=== PATIENT | male | born 1965 | race Caucasian/White ===

== ENCOUNTER 2022-12-01 09:22 | Emergency (ER) | payer OTHER, MEDICAID ==
[~2022-12-01] VITALS: Ht 172.7 cm; Wt 129.3 kg
[2022-12-01 09:30] VITALS: BP_SYST 195
--- NOTE | 2022-12-01 09:50 | NUR ---
Placed in room 06 . Placed on cardiac cath technician, blood pressure machine and pulse oximeter. To gown for exam. Side rails up. Report given to ROSE AUSTIN.
--- NOTE | 2022-12-01 09:53 | NUR ---
assumed patient care pt aox4 c/o left lower back pain that radiates to left lower quad. pt states pain started 2 days ago and since gotten worst. patient also states he has had nausea with no v/d. denies fever chills. pt roomed in 6 noted to be moaning and agitated with 10/10 pain. family at bedside.
[2022-12-01] MEDS ORDERED: NACL 0.9% 1,000 ML IV ONE (10:30)
[2022-12-01] MEDS ORDERED: MORPHINE 4 MG INJ. 4 MG/ML VIAL IVP ONE ×2 (10:30→12:00)
[2022-12-01] MEDS ORDERED: ONDANSETRON HCL 4 MG/2 ML VIAL IVP ONE (10:30)
[2022-12-01] MEDS ORDERED: KETOROLAC TROMETHAMINE 15 MG VIAL IVP ONE (10:30)
[2022-12-01 10:44] LABS: BASOPHILS # (AUTO) 0.1 K/uL (0.0-0.2); BASOPHILS % (AUTO) 1.1 % (0.0-2.0); EOSINOPHILS # (AUTO) 0.2 K/uL (0.0-0.4); EOSINOPHILS % (AUTO) 2.5 % (0.0-4.0); HEMATOCRIT 31.8 % (36-54); LYMPHOCYTES # (AUTO) 1.1 K/uL (1.0-5.5); LYMPHOCYTES % (AUTO) 11.7 % (20.5-51.5); MEAN CORPUSCULAR HEMOGLOBIN 25 pg (27-31); MEAN CORPUSCULAR HGB CONC 31 % (32-36); MEAN CORPUSCULAR VOLUME 80 fL (79.0-98.0); MONOCYTES # (AUTO) 0.8 K/uL (0.0-1.0); MONOCYTES % (AUTO) 8.8 % (1.7-9.3); NEUTROPHILS # (AUTO) 7.2 K/uL (1.8-7.7); NEUTROPHILS % (AUTO) 75.9 % (40.0-70.0); PLATELET COUNT (AUTO) 274 K/uL (130-430); RED BLOOD CELL COUNT(AUTO) 3.97 MIL/uL (4.2-6.2); RED CELL DISTRIBUTION WIDTH 17.1 % (9.0-15.0); WHITE BLOOD COUNT (AUTO) 9.5 K/uL (4.8-10.8)
[2022-12-01 10:57] LABS: CALCIUM 9.4 mg/dL (8.4-11.0); CREATININE 0.96 mg/dL (0.55-1.30)
[2022-12-01 11:03] LABS: ALBUMIN 3.2 g/dL (3.4-4.8); TOTAL BILIRUBIN 0.4 mg/dL (0.0-1.0)
[2022-12-01 11:34] LABS: BILIRUBIN,URINE NEGATIVE (NEGATIVE); CLARITY/URINE CLEAR (CLEAR); COLOR,URINE YELLOW (YELLOW); GLUCOSE,URINE 3+ (NEGATIVE); KETONES,URINE TRACE (NEGATIVE); LEUKOCYTE ESTERASE ,URINE NEGATIVE (NEGATIVE); NITRITE, URINE NEGATIVE (NEGATIVE); PROTEIN URINE 2+ (NEGATIVE); UROBILINOGEN,URINE 0.2 (0.2-1.0)
[2022-12-01 11:36] LABS: BLOOD, URINE TRACE (NEGATIVE)
--- NOTE | 2022-12-01 11:36 | NUR ---
patient resting in bed family at bedside. noted to be mayaan 06/15 pain pt states pain is improving slowing
[2022-12-01 12:06] LABS: BACTERIA,URINE FEW /HPF (None Seen); WBC,URINE 0-3 /HPF (0-3)
[2022-12-01] MEDS ORDERED: cefTRIAXone 1 GM in D5W 50 ML IV ONE (12:45)
[2022-12-01] MEDS ORDERED: cefTRIAXone 1 GM VIAL ONE (13:07)
--- NOTE | 2022-12-01 13:45 | NUR ---
iv removed from right AC
[2022-12-01] MEDS ORDERED: CEPH-548 PO (13:50)
--- NOTE | 2022-12-01 14:19 | NUR ---
Patient given written and verbal discharge instructions and verbalizes understanding. ER MD discussed with patient the results and treatment provided. Patient in stable condition. ID arm band removed. IV catheter removed intact and dressing applied, no active bleeding. Rx of Cephalexin given. Patient educated on pain management and to follow up with PMD. Pain Scale . Opportunity for questions provided and answered. Medication side effect fact sheet provided.
[2022-12-01 14:20] VITALS: BP_SYST 128
[2022-12-02] MEDS ORDERED: METO-290 PO (09:18)
[2022-12-02] MEDS ORDERED: HYDR-3917 PO (09:18)
== END 2022-12-01 14:19 | disposition home or self-care (01) ==
LOC: SED 09:22
DX: N12 Tubulo-interstitial nephritis, not specified as acute or chronic (principal); R11.0 Nausea; R10.32 Left lower quadrant pain; E11.9 Type 2 diabetes mellitus without complications; I10 Essential (primary) hypertension; Z91.013 Allergy to seafood; Z79.899 Other long term (current) drug therapy
CPT/HCPCS: 99285; 74176; 96365; 96375; 96361; 80053; 81000; 83690; 85025; 36415; 76376; 96376; J0696; J1885; J2405; J2270; J7030

== ENCOUNTER 2022-12-02 08:21 | Emergency (ER) | payer OTHER, MEDICAID ==
[~2022-12-02] VITALS: Ht 172.7 cm; Wt 129.3 kg
[~2022-12-02 08:21] MED LIST: CEPH-548 PO
--- NOTE | 2022-12-02 08:26 | NUR ---
patient brought into ED at this time by father with c/o left flank pain and nausea and vomiting. Patient states he was in the ED yesterday for same signs and symptoms but they have worsened today
[2022-12-02 08:27] VITALS: BP_SYST 179
--- NOTE | 2022-12-02 08:30 | NUR ---
PT BIB FATHER FROM HOME WITH C/O LEFT FLANK PAIN, N/V FOR TWO DAYS. PT STATES HE WAS HERE AT THIS ED FOR THE SAME S/S AND HIS SYMPTOMS HAVE BECOME WORSE TODAY. HX: DM, CHF, ULCERS. PT IS AAX04, VSS, NAD, BREATHING IS EVEN AND UNLABORED, SKIN INTACT. PT IS AMBULATORY WITH STEADY GAIT, PT IN GOWN. PT PLACED ON DRAPERY HEAD FORMER SHOWING NSR, SAFETY PRECAUTIONS AND COMFORT MEASURES IN PLACE. HOB ELEVADED, SIDE RAILS UP, BED IN LOWEST POSITION, CALL LIGHT WITHIN REACH. PENDING MD RAY AND ORDERS
[2022-12-02] MEDS ORDERED: MORPHINE 4 MG INJ. 4 MG/ML VIAL IM ONE (08:45)
[2022-12-02] MEDS ORDERED: HYDR-3917 PO (09:18)
[2022-12-02] MEDS ORDERED: METO-290 PO (09:18)
--- NOTE | 2022-12-02 09:20 | NUR ---
Patient escorted to room 5 with father. Patient with left flank pain; states that pain reoccurred after leaving ED yesterday. Patient seen by MD and morphine IM given. Currently awaiting re evaluation by MD to check on effectiveness of pain medication.
[2022-12-02] MEDS ORDERED: METOCLOPRAMIDE HCL 10 MG/2 ML VIAL IM ONE (09:30)
--- NOTE | 2022-12-02 10:22 | NUR ---
Patient given written and verbal discharge instructions and verbalizes understanding. ER MD discussed with patient the results and treatment provided. Patient in stable condition. ID arm band removed. Rx of nausea meds given. Patient educated on pain management and to follow up with PMD. Pain Scale 7/10 at this time. Opportunity for questions provided and answered. Medication side effect fact sheet provided.
[2022-12-02 10:25] VITALS: BP_SYST 155
== END 2022-12-02 10:22 | disposition home or self-care (01) ==
LOC: SED 08:21
DX: M54.50 Low back pain, unspecified (principal); R11.0 Nausea; E11.9 Type 2 diabetes mellitus without complications; I10 Essential (primary) hypertension; Z91.013 Allergy to seafood; Z79.899 Other long term (current) drug therapy
CPT/HCPCS: 99284; 96372; J2765; J2270

== ENCOUNTER 2023-01-24 23:44 | Inpatient (IN) | payer OTHER, MEDICAID ==
[~2023-01-24] VITALS: Ht 172.7 cm; Wt 124.7 kg
[~2023-01-24 23:44] MED LIST changes: +HYDR-3917 PO; +METO-290 PO
[2023-01-24 23:52] VITALS: BP_SYST 162
[2023-01-25] MEDS ORDERED: NITROGLYCERIN 1 INCH (GM) OINT. TP ONE
[2023-01-25] MEDS ORDERED: FUROSEMIDE 100 MG/10 ML VIAL IVP ONE
[2023-01-25 00:37] LABS: BASOPHILS # (AUTO) 0.1 K/uL (0.0-0.2); BASOPHILS % (AUTO) 1.1 % (0.0-2.0); EOSINOPHILS # (AUTO) 0.2 K/uL (0.0-0.4); EOSINOPHILS % (AUTO) 3.2 % (0.0-4.0); HEMOGLOBIN 11.3 g/dL (14.0-18.0); LYMPHOCYTES # (AUTO) 1.2 K/uL (1.0-5.5); LYMPHOCYTES % (AUTO) 15.5 % (20.5-51.5); MEAN CORPUSCULAR HEMOGLOBIN 25 pg (27-31); MEAN CORPUSCULAR HGB CONC 32 % (32-36); MEAN CORPUSCULAR VOLUME 81 fL (79.0-98.0); MONOCYTES # (AUTO) 0.7 K/uL (0.0-1.0); MONOCYTES % (AUTO) 9.2 % (1.7-9.3); NEUTROPHILS # (AUTO) 5.4 K/uL (1.8-7.7); PLATELET COUNT (AUTO) 148 K/uL (130-430); RED BLOOD CELL COUNT(AUTO) 4.46 MIL/uL (4.2-6.2); RED CELL DISTRIBUTION WIDTH 19.2 % (9.0-15.0); WHITE BLOOD COUNT (AUTO) 7.6 K/uL (4.8-10.8)
[2023-01-25 00:59] LABS: ALANINE AMINOTRANSFERASE 17 U/L (12-78); ALBUMIN 2.3 g/dL (3.4-4.8); ANION GAP 3 (5-15); ASPARTATE AMINOTRANSFERASE 11 U/L (10-37); CALCIUM 8.6 mg/dL (8.4-11.0); CHLORIDE 102 mmol/L (98-107); GFR AFRICAN AMERICAN 80 mL/min (>90); GLUCOSE 381 mg/dL (70-99); TOTAL BILIRUBIN 0.3 mg/dL (0.0-1.0); UREA NITROGEN, BLOOD 11 mg/dL (8-21)
[2023-01-25] MEDS ORDERED: MORPHINE 4 MG INJ. 4 MG/ML VIAL IVP ONE ×2 (01:45)
[2023-01-25] MEDS ORDERED: INSULIN REGULAR, HUMAN 10 UNITS/0.1 ML, 3 ML VIAL IVP ONE (04:00)
[2023-01-25] MEDS ORDERED: SEMA0.25 SQ (04:42)
[2023-01-25] MEDS ORDERED: PIOG30TA70 PO (04:42)
[2023-01-25] MEDS ORDERED: VITD2000 PO (04:42)
[2023-01-25] MEDS ORDERED: IBUP-1970 PO (04:42)
[2023-01-25] MEDS ORDERED: TRAM50TA2 PO (04:42)
[2023-01-25] MEDS ORDERED: FURO80TA86 PO (04:42)
[2023-01-25] MEDS ORDERED: LOP600 PO (04:42)
[2023-01-25] MEDS ORDERED: INSU100V SUBCUT (04:42)
[2023-01-25] MEDS ORDERED: ASPI-1155 PO (04:42)
[2023-01-25] MEDS ORDERED: SPIR25TA6 PO (04:42)
[2023-01-25] MEDS ORDERED: CARV25TA55 PO (04:42)
[2023-01-25] MEDS ORDERED: TRAZ-250 PO (04:42)
[2023-01-25] MEDS ORDERED: DIF100 PO (04:42)
[2023-01-25] MEDS ORDERED: LIP80 PO (04:42)
[2023-01-25] MEDS ORDERED: CLOP75TA32 PO (04:42)
[2023-01-25] MEDS ORDERED: PRO40 PO (04:42)
[2023-01-25] MEDS ORDERED: ALLO100T PO (04:42)
[2023-01-25] MEDS ORDERED: PREG75CA PO (04:42)
[2023-01-25] MEDS ORDERED: GLIP10TA11 PO (04:42)
[2023-01-25] MEDS ORDERED: EMPA25TA PO (04:42)
[2023-01-25] MEDS ORDERED: METO-290 PO (04:42)
[2023-01-25] MEDS ORDERED: NITSL SL (04:42)
[2023-01-25] MEDS ORDERED: AMIT25TA9 PO (04:42)
[2023-01-25] MEDS ORDERED: POTA-197 PO (04:42)
[2023-01-25] MEDS ORDERED: LOSA25TA3 PO (04:42)
[2023-01-25 05:44] VITALS: BP_SYST 149
[2023-01-25 08:54] VITALS: BP_SYST 154
[2023-01-25] MEDS ORDERED: NON-FORMULARY MEDICATION (Semaglutide (Ozempic) 0.5 MG) SQ SCH (10:15)
[2023-01-25] MEDS ORDERED: NON-FORMULARY MEDICATION (Empagliflozin (Jardiance) 25 MG) PO SCH (10:15)
[2023-01-25] MEDS ORDERED: IBUPROFEN 800 MG TABLET PO PRN (10:15)
[2023-01-25] MEDS ORDERED: METOCLOPRAMIDE HCL 10 MG TABLET PO PRN (10:15)
[2023-01-25] MEDS ORDERED: LORazepam 2 MG/ML VIAL IVP PRN (10:15)
[2023-01-25] MEDS ORDERED: PIOGLITAZONE HCL 45 MG PO SCH (10:15)
[2023-01-25] MEDS ORDERED: NITROGLYCERIN 0.4 MG TAB.SUBL SL PRN (10:15)
[2023-01-25] MEDS ORDERED: traMADol HCL HCL 50 MG TABLET (ULTRAM) PO PRN (10:15)
[2023-01-25] MEDS ORDERED: ONDANSETRON HCL 4 MG/2 ML VIAL IVP PRN (10:15)
[2023-01-25] MEDS ORDERED: HYDROcodone/ACETAMIN 5-325 MG TAB (NORCO/ VICODIN) PO PRN (10:15)
[2023-01-25] MEDS ORDERED: NALOXONE HCL 0.4 MG/ML AMP (NARCAN) IVP PRN (10:15)
[2023-01-25] MEDS ORDERED: ASPIRIN 81 MG TAB.CHEW PO ONE (10:45)
[2023-01-25] MEDS ORDERED: LOSARTAN POTASSIUM 25 MG TABLET PO ONE (11:15)
[2023-01-25] MEDS ORDERED: CHOLECALCIFEROL (VITAMIN D3) 2,000 UNIT TABLET PO ONE (11:15)
[2023-01-25] MEDS ORDERED: CLOPIDOGREL BISULFATE 75 MG TABLET PO ONE (11:15)
[2023-01-25] MEDS ORDERED: SPIRONOLACTONE 25 MG TABLET (ALDACTONE) PO ONE (11:15)
[2023-01-25] MEDS ORDERED: ALLOPURINOL 100 MG TABLET (ZYLOPRIM) PO ONE (11:15)
[2023-01-25 11:50] VITALS: BP_SYST 145
[2023-01-25] MEDS: INSULIN Lispro 100 UNITS/ML, 3 ML VIAL (humaLOG) SUBCUT SCH ×2 (12:04→17:24)
[2023-01-25 12:33] LABS: THYROID STIMULATING HORMONE 2.74 uIu/mL (0.34-4.82)
[2023-01-25] MEDS: METOCLOPRAMIDE HCL 10 MG TABLET PO SCH ×3 (13:00→21:31)
[2023-01-25] MEDS ORDERED: LIDOCAINE TOPICAL OINT 5%, 35 GM TP PRN (15:30)
[2023-01-25] MEDS: NORMAL SALINE 5 ML DISP.SYRIN IVF SCH ×2 (15:30→21:34)
[2023-01-25] MEDS: FUROSEMIDE 80 MG TABLET PO SCH (17:22)
[2023-01-25 18:32] VITALS: BP_SYST 145
[2023-01-25] MEDS ORDERED: traZODone HCL 50 MG TABLET (DESYREL) PO SCH (21:00)
[2023-01-25] MEDS ORDERED: cephALEXin 500 MG CAPSULE PO SCH (21:00)
[2023-01-25] MEDS ORDERED: ATORVASTATIN 20 MG TABLET PO SCH (21:00)
[2023-01-25] MEDS: PREGABALIN 75 MG CAPSULE (LYRICA) PO SCH (21:31)
[2023-01-25] MEDS: PANTOPRAZOLE SODIUM 40 MG TAB PO SCH (21:31)
[2023-01-25] MEDS: AMITRIPTYLINE HCL 25 MG TABLET (ELAVIL) PO SCH (21:33)
[2023-01-25] MEDS: GEMFIBROZIL 600 MG TABLET (LOPID) PO SCH (21:33)
[2023-01-25] MEDS: CARVEDILOL 25 MG TABLET (COREG) PO SCH (21:34)
[2023-01-25] MEDS: INSULIN REGULAR, HUMAN 100 UNITS/ML, 3 ML VIAL (humuLIN R) SUBCUT PRN (22:23)
[2023-01-26 01:39] VITALS: BP_SYST 140
[2023-01-26 04:09] VITALS: BP_SYST 140
[2023-01-26 05:45] LABS: BASOPHILS # (AUTO) 0.1 K/uL (0.0-0.2); BASOPHILS % (AUTO) 0.9 % (0.0-2.0); EOSINOPHILS # (AUTO) 0.4 K/uL (0.0-0.4); EOSINOPHILS % (AUTO) 4.9 % (0.0-4.0); HEMATOCRIT 35.5 % (36-54); HEMOGLOBIN 11.3 g/dL (14.0-18.0); LYMPHOCYTES # (AUTO) 1.7 K/uL (1.0-5.5); LYMPHOCYTES % (AUTO) 21.4 % (20.5-51.5); MEAN CORPUSCULAR HEMOGLOBIN 26 pg (27-31); MEAN CORPUSCULAR HGB CONC 32 % (32-36); MEAN CORPUSCULAR VOLUME 80 fL (79.0-98.0); MONOCYTES # (AUTO) 0.7 K/uL (0.0-1.0); MONOCYTES % (AUTO) 8.5 % (1.7-9.3); NEUTROPHILS # (AUTO) 5.2 K/uL (1.8-7.7); NEUTROPHILS % (AUTO) 64.3 % (40.0-70.0); PLATELET COUNT (AUTO) 144 K/uL (130-430); RED BLOOD CELL COUNT(AUTO) 4.42 MIL/uL (4.2-6.2); RED CELL DISTRIBUTION WIDTH 18.6 % (9.0-15.0); WHITE BLOOD COUNT (AUTO) 8.1 K/uL (4.8-10.8)
[2023-01-26 06:15] LABS: CALCIUM 8.5 mg/dL (8.4-11.0); CREATININE 0.97 mg/dL (0.55-1.30)
[2023-01-26] MEDS: INSULIN REGULAR, HUMAN 100 UNITS/ML, 3 ML VIAL (humuLIN R) SUBCUT PRN (06:16)
[2023-01-26] MEDS: NORMAL SALINE 5 ML DISP.SYRIN IVF SCH (06:18)
[2023-01-26] MEDS: FUROSEMIDE 80 MG TABLET PO SCH (06:19)
[2023-01-26 07:43] VITALS: BP_SYST 113
[2023-01-26] MEDS: CARVEDILOL 25 MG TABLET (COREG) PO SCH (08:07)
[2023-01-26] MEDS: GEMFIBROZIL 600 MG TABLET (LOPID) PO SCH (08:08)
[2023-01-26] MEDS: AMITRIPTYLINE HCL 25 MG TABLET (ELAVIL) PO SCH (08:08)
[2023-01-26] MEDS: PANTOPRAZOLE SODIUM 40 MG TAB PO SCH (08:08)
[2023-01-26] MEDS: PREGABALIN 75 MG CAPSULE (LYRICA) PO SCH (08:08)
[2023-01-26] MEDS: METOCLOPRAMIDE HCL 10 MG TABLET PO SCH ×2 (08:09→13:00)
[2023-01-26] MEDS: INSULIN Lispro 100 UNITS/ML, 3 ML VIAL (humaLOG) SUBCUT SCH ×2 (08:12→11:09)
[2023-01-26] MEDS ORDERED: SACUBITRIL/VALSARTAN 24 MG-26 MG 1 TABLET PO SCH (09:00)
[2023-01-26] MEDS ORDERED: CLOPIDOGREL BISULFATE 75 MG TABLET PO SCH (09:00)
[2023-01-26] MEDS ORDERED: SPIRONOLACTONE 25 MG TABLET (ALDACTONE) PO SCH (09:00)
[2023-01-26] MEDS ORDERED: CHOLECALCIFEROL (VITAMIN D3) 2,000 UNIT TABLET PO SCH (09:00)
[2023-01-26] MEDS ORDERED: ASPIRIN 81 MG TAB.CHEW PO SCH (09:00)
[2023-01-26] MEDS ORDERED: ALLOPURINOL 100 MG TABLET (ZYLOPRIM) PO SCH (09:00)
[2023-01-26] MEDS ORDERED: PIOGLITAZONE HCL 15 MG TABLET PO SCH (09:00)
[2023-01-26] MEDS ORDERED: LOSARTAN POTASSIUM 25 MG TABLET PO SCH (09:00)
[2023-01-26] MEDS ORDERED: SACU1TAB PO (10:01)
[2023-01-26] MEDS ORDERED: LIDOINT TP (10:01)
[2023-01-26 11:27] VITALS: BP_SYST 115
[2023-01-26 11:50] VITALS: BP_SYST 120
[2023-01-27] MEDS ORDERED: POTASSIUM CHLORIDE 10 MEQ TAB.PRT.SR PO SCH (09:00)
[2023-02-21] MEDS ORDERED: METO2.5T6 PO (11:09)
== END 2023-01-26 23:39 | disposition home or self-care (01) | DRG 205 ==
LOC: SED 23:44 → STU 01-25 04:15
PROVIDERS: ADMIT Preventive Medicine Preventive Medicine/Occupational Environmental Medicine; ATTEND Preventive Medicine Preventive Medicine/Occupational Environmental Medicine
DX: M94.0 Chondrocostal junction syndrome [Tietze] (principal); E43 Unspecified severe protein-calorie malnutrition; J96.00 Acute respiratory failure, unspecified whether with hypoxia or hypercapnia; I50.23 Acute on chronic systolic (congestive) heart failure; Z68.41 Body mass index [BMI] 40.0-44.9, adult; I11.0 Hypertensive heart disease with heart failure; K21.9 Gastro-esophageal reflux disease without esophagitis; E88.09 Other disorders of plasma-protein metabolism, not elsewhere classified; E11.65 Type 2 diabetes mellitus with hyperglycemia; E11.43 Type 2 diabetes mellitus with diabetic autonomic (poly)neuropathy; K31.84 Gastroparesis; Z20.822 Contact with and (suspected) exposure to COVID-19; I25.119 Atherosclerotic heart disease of native coronary artery with unspecified angina pectoris; Z91.013 Allergy to seafood; Z79.891 Long term (current) use of opiate analgesic; Z79.899 Other long term (current) drug therapy
CPT/HCPCS: 36415; 36600; 71045; 80048; 80053; 80061; 82803-TC; 83037; 83880; 84443; 84484; 85025; 93005; 93306; 96374; 96375; 99291; G0378; J1815; J1940; J2270; J8597

== ENCOUNTER 2023-02-06 22:42 | Inpatient (IN) | payer OTHER, MEDICAID ==
[~2023-02-06] VITALS: Ht 172.7 cm; Wt 123.4 kg
[~2023-02-06 22:42] MED LIST changes: +ALLO100T PO; +AMIT25TA9 PO; +ASPI-1155 PO; +CARV25TA55 PO; +CLOP75TA32 PO; +DIF100 PO; +EMPA25TA PO; +FURO80TA86 PO; +GLIP10TA11 PO; +IBUP-1970 PO; +INSU100V SUBCUT; +LIDOINT TP; +LIP80 PO; +LOP600 PO; +LOSA25TA3 PO; +NITSL SL; +PIOG30TA70 PO; +POTA-197 PO; +PREG75CA PO; +PRO40 PO; +SACU1TAB PO; +SEMA0.25 SQ; +SPIR25TA6 PO; +TRAM50TA2 PO; +TRAZ-250 PO; +VITD2000 PO
[2023-02-06 22:46] VITALS: BP_SYST 156
--- NOTE | 2023-02-06 22:58 | NUR ---
Placed in room 1 . Placed on rug cleaner helper, blood pressure machine and pulse oximeter. To gown for exam. Side rails up. Report given to VERA ROSE(REG).
--- NOTE | 2023-02-06 23:00 | NUR ---
ER at bedside examining patient.
--- NOTE | 2023-02-06 23:42 | NUR ---
COVID SAMPLE COLLECTED AND SENT TO LAB
--- NOTE | 2023-02-06 23:44 | NUR ---
PT IS AA&OX4. AFEBRILE. NAD. ON O2@ 6L/MIN VIA NC. AMBULATORY W/ STEADY GAIT. B & B CONTINENT. SAFE & HAZARD FREE ENVIRONMENT. CONNECTED TO WHIZZER OPERATOR.
[2023-02-06 23:51] LABS: BASOPHILS # (AUTO) 0.1 K/uL (0.0-0.2); BASOPHILS % (AUTO) 0.7 % (0.0-2.0); EOSINOPHILS # (AUTO) 0.2 K/uL (0.0-0.4); HEMATOCRIT 35.7 % (36-54); HEMOGLOBIN 11.3 g/dL (14.0-18.0); LYMPHOCYTES # (AUTO) 1.2 K/uL (1.0-5.5); LYMPHOCYTES % (AUTO) 13.8 % (20.5-51.5); MEAN CORPUSCULAR HEMOGLOBIN 26 pg (27-31); MEAN CORPUSCULAR HGB CONC 32 % (32-36); MEAN CORPUSCULAR VOLUME 81 fL (79.0-98.0); MONOCYTES # (AUTO) 0.8 K/uL (0.0-1.0); NEUTROPHILS # (AUTO) 6.6 K/uL (1.8-7.7); NEUTROPHILS % (AUTO) 74.5 % (40.0-70.0); PLATELET COUNT (AUTO) 190 K/uL (130-430); RED CELL DISTRIBUTION WIDTH 19.2 % (9.0-15.0); WHITE BLOOD COUNT (AUTO) 8.8 K/uL (4.8-10.8)
[2023-02-07 00:09] LABS: PROTHROMBIN TIME 10.6 SECS (9.5-12.5)
[2023-02-07 00:13] LABS: ALANINE AMINOTRANSFERASE 15 U/L (12-78); ALBUMIN 2.6 g/dL (3.4-4.8); ANION GAP 3 (5-15); ASPARTATE AMINOTRANSFERASE 9 U/L (10-37); CALCIUM 8.6 mg/dL (8.4-11.0); CHLORIDE 101 mmol/L (98-107); CREATININE 1.19 mg/dL (0.55-1.30); GFR AFRICAN AMERICAN 81 mL/min (>90); GLUCOSE 345 mg/dL (70-99); TOTAL BILIRUBIN 0.3 mg/dL (0.0-1.0); UREA NITROGEN, BLOOD 16 mg/dL (8-21)
[2023-02-07] MEDS ORDERED: FUROSEMIDE 40 MG/4 ML VIAL IVP ONE (00:45)
[2023-02-07] MEDS ORDERED: IPRATROPIUM/ALBUTEROL SULFATE 3 ML AMPUL.NEB (DUONEB) INH PRN (00:45)
[2023-02-07] MEDS ORDERED: FUROSEMIDE 40 MG/4 ML VIAL ONE (00:49)
--- NOTE | 2023-02-07 00:52 | NUR ---
Admit bed requested Patient will be admitted to care of Skyler Nye Admitted to TELEMETRY unit. Diagnosis : CHF EXACERBATION Inpatient :Yes Observation : No Orientation concerns or request close to nursing station : No Covid Status : NEGATIVE On vent or bipap : NO Isolation requirements :NO Needs a sitter :NO From Home :Yes Requires Dialysis : No Med Rec Completed :PNDG
--- NOTE | 2023-02-07 00:59 | NUR ---
O2 TAPERED DOWN TO 4L/MIN VIA NC TOLERATING WELL SATURATING AT 95%.
--- NOTE | 2023-02-07 01:11 | NUR ---
Medication reconciliation completed with information provided by PT. Any prior medication reconciliation on file was reviewed and corrected.
[2023-02-07] MEDS ORDERED: HYDROcodone/ACETAMIN 5-325 MG TAB (NORCO/ VICODIN) PO ONE (01:15)
--- NOTE | 2023-02-07 01:58 | NUR ---
Patient will be admitted to care of [facility]. Admitted to TELEMETRY unit. Will go to room 106B. Belongings list completed. Complete and up to date summary report printed. SBAR report to be given TO ROSE STEVENS at bedside with opportunity for questions.
[2023-02-07 02:31] VITALS: BP_SYST 112
--- NOTE | 2023-02-07 03:37 | NUR ---
Patient has partial amputation left foot 2nd toe .
--- NOTE | 2023-02-07 03:37 | NUR ---
ADMIT NOTE Received pt from ER to the floor with a diagnosis of CHF. Admission process initiated. patient oriented to pain management, safety and call light-teach back done patient alert ambulates BRP edema is noted to both lower legs pitting .
--- NOTE | 2023-02-07 03:39 | NUR ---
pictures taken of both lower legs discoloration with open skin areas Right lower leg / edema is noted .
[2023-02-07 03:43] VITALS: BP_SYST 112
--- NOTE | 2023-02-07 04:05 | NUR ---
Hourly Rounding patient is resting verbally Responsive on 02 NC @ 4 LPM respirations regular also unlabored / patient does ambulate BRP / .
--- NOTE | 2023-02-07 05:00 | NUR ---
Patient out of room ambulating tolerating no SOB noted on room air alert oriented .
[2023-02-07] MEDS: INSULIN REGULAR, HUMAN 100 UNITS/ML, 3 ML VIAL (humuLIN R) SUBCUT PRN ×4 (06:43→21:48)
--- NOTE | 2023-02-07 07:19 | NUR ---
Opening note received SBAR from night RN. Patient standing by bed, on room air, denies any pain or discomfort. Patients gait is stable and is AOx4
[2023-02-07 08:00] VITALS: BP_SYST 151
--- NOTE | 2023-02-07 08:47 | NUR ---
CONSULTATION: REASON FOR CONSULT: CHF CONSULTING PHYSICIAN: CHF ORDERED BY: NETO SPOKE WITH DR MCGEE HIMSELF AND IS AWARE OF CONSULT. ALREADY IN HOSPITAL
--- NOTE | 2023-02-07 08:49 | NUR ---
CONSULTATION: REASON FOR CONSULT: CHF CONSULTING PHYSICIAN: Katie WHITE ORDERED BY: NETO SPOKE WITH DR WHITE HIMSELF AND IS AWARE OF CONSULT
--- NOTE | 2023-02-07 08:55 | NUR ---
CONSULTATION: REASON FOR CONSULT: CHF CONSULTING PHYSICIAN: Santana MURRAY ORDERED BY: NETO MURRAY AND IS AWARE OF CONSULT
[2023-02-07] MEDS ORDERED: FUROSEMIDE 40 MG/4 ML VIAL IVP SCH (09:00)
[2023-02-07] MEDS ORDERED: MUPIROCIN 2% TOPICAL OINTMENT 22 GM NS PRN (09:00)
[2023-02-07] MEDS ORDERED: LOSARTAN POTASSIUM 25 MG TABLET PO SCH (09:00)
[2023-02-07] MEDS ORDERED: NALOXONE HCL 0.4 MG/ML AMP (NARCAN) IVP PRN ×2 (09:00)
[2023-02-07] MEDS ORDERED: LORazepam 2 MG/ML VIAL IVP PRN (09:00)
[2023-02-07] MEDS ORDERED: MAGNESIUM SULFATE 50 ML IV PRN (09:00)
[2023-02-07] MEDS ORDERED: POTASSIUM CHLORIDE 20 MEQ TAB.PRT.SR PO PRN (09:00)
[2023-02-07] MEDS ORDERED: DOCUSATE SODIUM 100 MG CAPSULE PO PRN (09:00)
[2023-02-07] MEDS ORDERED: MORPHINE 2 MG/ML INJ. SYRINGE IVP PRN ×2 (09:00)
[2023-02-07] MEDS ORDERED: ACETAMINOPHEN 325 MG TABLET PO PRN ×2 (09:00→09:30)
[2023-02-07] MEDS ORDERED: ZOLPIDEM TARTRATE 5 MG TABLET PO PRN (09:00)
[2023-02-07] MEDS: ONDANSETRON HCL 4 MG/2 ML VIAL IVP PRN ×2 (09:40→12:57)
[2023-02-07] MEDS: FUROSEMIDE 40 MG/4 ML VIAL IVP SCH ×2 (09:42→21:42)
[2023-02-07] MEDS: INSULIN GLARGINE 100 UNITS/ML, 10 ML VIAL SUBCUT SCH (09:43)
[2023-02-07] MEDS: GEMFIBROZIL 600 MG TABLET (LOPID) PO SCH ×2 (09:54→21:43)
[2023-02-07] MEDS: AMITRIPTYLINE HCL 25 MG TABLET (ELAVIL) PO SCH ×2 (09:54→21:43)
[2023-02-07] MEDS: ASPIRIN 81 MG TAB.CHEW PO SCH (09:55)
[2023-02-07] MEDS: CARVEDILOL 25 MG TABLET (COREG) PO SCH ×2 (09:55→21:43)
[2023-02-07] MEDS: CLOPIDOGREL BISULFATE 75 MG TABLET PO SCH (09:55)
[2023-02-07 09:57] LABS: BARBITURATE, URINE NEGATIVE (NEG <=200); BENZODIAZEPINE, URINE NEGATIVE (NEG <=150); METHAMPHETAMINES SCREEN,URINE NEGATIVE (NEG <=500); URINE AMPHETAMINE NEGATIVE (NEG <=500); URINE METHADONE NEGATIVE (NEG <=200)
[2023-02-07 09:58] LABS: CANNABINOID, URINE NEGATIVE (NEG <=50); COCAINE, URINE NEGATIVE (NEG <=150); OPIATE, URINE POSITIVE (NEG <=100); PHENCYCLIDINE SCREEN,URINE NEGATIVE (NEG <=25); UR TRICYCLIC ANTIDEPRESSANTS NEGATIVE (NEG <=300); URINE OXYCODONE SCREEN NEGATIVE (NEG <=100); URINE PROPOXYPHENE SCREEN NEGATIVE (NEG <=300)
[2023-02-07] MEDS ORDERED: SACUBITRIL/VALSARTAN 24 MG-26 MG 1 TABLET PO SCH (10:30)
--- NOTE | 2023-02-07 10:31 | NUR ---
Called Dr Banuelos regarding patients continuing to vomit after Zofran spoke with Ev
--- NOTE | 2023-02-07 11:03 | NUR ---
JULIA HUSAIN IS BEDSIDE EXAMINING PATIENT
[2023-02-07 11:26] VITALS: BP_SYST 141
[2023-02-07] MEDS: PREGABALIN 75 MG CAPSULE (LYRICA) PO SCH ×2 (11:45→21:42)
[2023-02-07] MEDS: ALLOPURINOL 100 MG TABLET (ZYLOPRIM) PO SCH (11:45)
[2023-02-07] MEDS: PANTOPRAZOLE SODIUM 40 MG TAB PO SCH ×2 (11:46→21:42)
[2023-02-07] MEDS: SPIRONOLACTONE 25 MG TABLET (ALDACTONE) PO SCH (11:47)
[2023-02-07] MEDS: cefTRIAXone 1 GM in D5W 50 ML IV SCH (11:53)
[2023-02-07] MEDS ORDERED: ISOSORBIDE MONONITRATE 30 MG TAB.ER.24H PO ONE (12:00)
[2023-02-07] MEDS ORDERED: LIDOCAINE TOPICAL OINT 5%, 35 GM TP PRN (12:00)
--- NOTE | 2023-02-07 13:25 | NUR ---
Patient existing HH service with [facility] verified. DC referral packet for HH faxed Aminah alvarenga# [phone].
[2023-02-07] MEDS ORDERED: METOCLOPRAMIDE HCL 10 MG/2 ML VIAL IVP PRN (13:30)
--- NOTE | 2023-02-07 13:45 | NUR ---
Aminah at [facility] called back to say they cannot accept the patient due to insurance.
[2023-02-07 15:20] VITALS: BP_SYST 117
--- NOTE | 2023-02-07 15:25 | NUR ---
nurse note patient in bed asleep, regular respirations even non labored, bed in low and locked position call light within reach. no signs of pain or discomfort. no moaning or facial grimacing
--- NOTE | 2023-02-07 16:25 | NUR ---
CM faxed clinicals to [facility] department [facility]
--- NOTE | 2023-02-07 17:35 | NUR ---
P.T. NOTES P.T. EVAL COMPLETED; REFER TO EVAL FOR DETAILS; O2 SAT ROOM AIR=93% W/ EXERTION.
--- NOTE | 2023-02-07 18:46 | NUR ---
nurse note Patient in bed, respirations even non labored, bed in low and locked position call light within reach. Patient denies any pain or discomfort
[2023-02-07 19:40] VITALS: BP_SYST 140
--- NOTE | 2023-02-07 19:40 | NUR ---
PM ASSESSMENT; -Patient is awake, alert, oriented X 4. Patient oriented to hospital room, call light, toileting, pain management and safety-teach back done. Patient informed that I (Nicole) will be her nurse and that her room is 106-B. Pt is able to ambulate with steady gaits noted. Discussed poc,all safety measures, pt verbalized understanding. Bed alarmed,side rails x2, Call light within reach. Cont to monitor pt.
--- NOTE | 2023-02-07 19:40 | NUR ---
PM ASSESSMENT; -Patient is awake, alert, oriented X 4. Pt denies any chest pain,pain,sob,or any acute distress. Patient oriented to hospital room, call light, toileting, pain management and safety-teach back done. Patient informed that I (Nicole) will be his nurse and that his room is 106-B. Discussed poc and all safety measures, pt verbalized understanding. Bed alarmed,side rails x3, Call light within reach. Cont to monitor pt.
[2023-02-07] MEDS: SACUBITRIL/VALSARTAN 24 MG-26 MG 1 TABLET PO SCH (21:00)
[2023-02-07] MEDS: ATORVASTATIN 20 MG TABLET PO SCH (21:43)
[2023-02-07] MEDS: traZODone HCL 50 MG TABLET (DESYREL) PO SCH (21:43)
[2023-02-08 00:06] VITALS: BP_SYST 116
--- NOTE | 2023-02-08 00:06 | NUR ---
ROUNDS; -Pt is resting in bed comfortably. Pt denies any chest pain,pain,sob,or any acute distress. Pt refused Entresto po, VSS 116/60,74. Call light w/in reach. Cont to monitor pt.
--- NOTE | 2023-02-08 04:25 | NUR ---
ROUNDS; -Pt is asleep. No s/s any chest pain,pain,sob,or any acute distress noted. Call light w/in reach and side rails x2. Cont to monitor
[2023-02-08] MEDS: INSULIN REGULAR, HUMAN 100 UNITS/ML, 3 ML VIAL (humuLIN R) SUBCUT PRN ×4 (06:19→21:09)
--- NOTE | 2023-02-08 06:38 | NUR ---
-CLOSING NOTES; -Pt is asleep in bed. No s/s any chest pain,pain,sob,or any acute distress noted. Pt's condition stable. IV site patent drsg cdi. Call light w/in reach and side rails x2. Will endorse to next nurse to cont care.
[2023-02-08 06:44] LABS: BASOPHILS # (AUTO) 0.1 K/uL (0.0-0.2); BASOPHILS % (AUTO) 0.8 % (0.0-2.0); EOSINOPHILS # (AUTO) 0.3 K/uL (0.0-0.4); EOSINOPHILS % (AUTO) 4.7 % (0.0-4.0); HEMATOCRIT 33.8 % (36-54); HEMOGLOBIN 10.8 g/dL (14.0-18.0); LYMPHOCYTES # (AUTO) 1.8 K/uL (1.0-5.5); LYMPHOCYTES % (AUTO) 23.9 % (20.5-51.5); MEAN CORPUSCULAR HEMOGLOBIN 26 pg (27-31); MEAN CORPUSCULAR HGB CONC 32 % (32-36); MEAN CORPUSCULAR VOLUME 81 fL (79.0-98.0); MONOCYTES # (AUTO) 0.7 K/uL (0.0-1.0); MONOCYTES % (AUTO) 9.3 % (1.7-9.3); NEUTROPHILS # (AUTO) 4.6 K/uL (1.8-7.7); NEUTROPHILS % (AUTO) 61.3 % (40.0-70.0); PLATELET COUNT (AUTO) 183 K/uL (130-430); RED BLOOD CELL COUNT(AUTO) 4.17 MIL/uL (4.2-6.2); RED CELL DISTRIBUTION WIDTH 19.3 % (9.0-15.0); WHITE BLOOD COUNT (AUTO) 7.5 K/uL (4.8-10.8)
[2023-02-08 07:15] LABS: CALCIUM 8.4 mg/dL (8.4-11.0); CREATININE 1.05 mg/dL (0.55-1.30)
--- NOTE | 2023-02-08 07:30 | NUR ---
OPENING NOTE; PT RESTING IN BED, IV SITE REMAIN INTACT AND CLEAN. NO IV FILTRATION OR INFECTION NOTED. BED IS LOCKED AND AT LOW POSITION. ENCOURAGED PT TO USE CALL LIGHT FOR ASSISTANCE. SAFETY PRECAUTION IN PLACE. NO C/O PAIN OR DISCOMFORT. WILL CONT TO MONITOR
[2023-02-08 08:00] VITALS: BP_SYST 114
[2023-02-08] MEDS ORDERED: CEPH250C PO (08:46)
[2023-02-08] MEDS: INSULIN GLARGINE 100 UNITS/ML, 10 ML VIAL SUBCUT SCH (08:52)
[2023-02-08] MEDS: SACUBITRIL/VALSARTAN 24 MG-26 MG 1 TABLET PO SCH ×2 (08:56→20:56)
[2023-02-08] MEDS: PANTOPRAZOLE SODIUM 40 MG TAB PO SCH ×2 (08:57→20:57)
[2023-02-08] MEDS: SPIRONOLACTONE 25 MG TABLET (ALDACTONE) PO SCH (08:57)
[2023-02-08] MEDS: ALLOPURINOL 100 MG TABLET (ZYLOPRIM) PO SCH (08:58)
[2023-02-08] MEDS: PREGABALIN 75 MG CAPSULE (LYRICA) PO SCH ×2 (08:58→20:57)
[2023-02-08] MEDS: GEMFIBROZIL 600 MG TABLET (LOPID) PO SCH ×2 (08:58→20:57)
[2023-02-08] MEDS ORDERED: ISOSORBIDE MONONITRATE 30 MG TAB.ER.24H PO SCH (09:00)
[2023-02-08] MEDS: AMITRIPTYLINE HCL 25 MG TABLET (ELAVIL) PO SCH ×2 (09:00→20:57)
[2023-02-08] MEDS: ASPIRIN 81 MG TAB.CHEW PO SCH (09:01)
[2023-02-08] MEDS: CLOPIDOGREL BISULFATE 75 MG TABLET PO SCH (09:01)
[2023-02-08] MEDS: CARVEDILOL 25 MG TABLET (COREG) PO SCH ×2 (09:01→21:00)
[2023-02-08] MEDS: cefTRIAXone 1 GM in D5W 50 ML IV SCH (09:02)
[2023-02-08] MEDS: FUROSEMIDE 40 MG/4 ML VIAL IVP SCH ×2 (09:03→21:00)
--- NOTE | 2023-02-08 09:30 | NUR ---
NOTES; PROVIDED WOUND CARE, PICTURE TAKEN. PT TOLERATED WELL.
--- NOTE | 2023-02-08 10:02 | NUR ---
NOTES; CARDIOLOGY PA AT BEDSIDE, ASSESSING PT. RECEIVED NEW ORDERS.
--- NOTE | 2023-02-08 10:09 | NUR ---
CM follow up with pt insurance; Heather at [facility] states they did not receive fax. CM refaxed clinicals and request for auth for HH to f# [phone]
[2023-02-08] MEDS ORDERED: ALBU2.5V7 INH (10:29)
[2023-02-08] MEDS ORDERED: SITA100T11 PO (10:32)
[2023-02-08 12:00] VITALS: BP_SYST 103
--- NOTE | 2023-02-08 14:44 | NUR ---
CM follow up with @ [facility] regarding discharge planning for HH. order and clinicals were faxed this morning. dept states they did not receive any fax. Fax redirect to Tamika alvarenga# /[phone]. call ref# [id number].
--- NOTE | 2023-02-08 15:32 | NUR ---
order for nebulizer faxed to [facility] f#[phone]
[2023-02-08 16:00] VITALS: BP_SYST 103
--- NOTE | 2023-02-08 17:30 | NUR ---
NOTES; BS: 182, PROVIDED INSULIN ORDERED. PT TOLERATED WELL
--- NOTE | 2023-02-08 19:03 | NUR ---
CLOSING NOTE; PT RESTING IN BED, DENIES ANY PAIN OR DISCOMFORT. IV S/L REMAIN INTACT AND PATENT. BED IS LOCKED AND AT LOW POSITION. PT AMBULATES WITH STEADY GAIT. ENCOURAGED PT TO USE CALL LIGHT FOR ASSISTANCE. REINFORCED THE IMPORTANCE OF KEEPING FLUID RESTRICTION. PT VERBALIZED UNDERSTANDING. WILL ENDORSE CARE TO PRINCIPAL ELECTRICAL ENGINEER NURSE.
[2023-02-08 19:35] VITALS: BP_SYST 118
[2023-02-08] MEDS: ATORVASTATIN 20 MG TABLET PO SCH (20:56)
[2023-02-08] MEDS: traZODone HCL 50 MG TABLET (DESYREL) PO SCH (20:58)
[2023-02-08] MEDS: ONDANSETRON HCL 4 MG/2 ML VIAL IVP PRN (21:12)
[2023-02-09] VITALS: BP_SYST 111
--- NOTE | 2023-02-09 05:38 | NUR ---
CLOSING NOTE PATIENT WAS COOPERATIVE TO CARE, HE WAS STABLE THROUGHOUT THE SHIFT, NO SHORTNESS OF BREATH OR RESPIRATORY EVENTS NOTED. AT THIS TIME, HE IS RESTING IN BED, STABLE, NO SIGNS OF RESPIRATORY DISTRESS. CALL LIGHT WITHIN REACH. BED IS LOCKED, ALARMED, AND AT THE LOWEST LEVEL. FALL, SAFETY, AND RESPIRATORY PRECAUTIONS HAVE BEEN IN PLACE THROUGHOUT THE SHIFT. WILL CONTINUE TO MONITOR UNTIL REPORT IS GIVEN AT BEDSIDE TO AM NURSE.
[2023-02-09 05:57] LABS: BASOPHILS # (AUTO) 0.1 K/uL (0.0-0.2); EOSINOPHILS # (AUTO) 0.3 K/uL (0.0-0.4); EOSINOPHILS % (AUTO) 4.5 % (0.0-4.0); HEMATOCRIT 32.2 % (36-54); HEMOGLOBIN 10.4 g/dL (14.0-18.0); LYMPHOCYTES # (AUTO) 1.5 K/uL (1.0-5.5); LYMPHOCYTES % (AUTO) 20.6 % (20.5-51.5); MEAN CORPUSCULAR HEMOGLOBIN 26 pg (27-31); MEAN CORPUSCULAR HGB CONC 32 % (32-36); MEAN CORPUSCULAR VOLUME 81 fL (79.0-98.0); MONOCYTES # (AUTO) 0.7 K/uL (0.0-1.0); MONOCYTES % (AUTO) 9.9 % (1.7-9.3); NEUTROPHILS # (AUTO) 4.5 K/uL (1.8-7.7); PLATELET COUNT (AUTO) 166 K/uL (130-430); RED CELL DISTRIBUTION WIDTH 19.1 % (9.0-15.0); WHITE BLOOD COUNT (AUTO) 7.1 K/uL (4.8-10.8)
[2023-02-09 06:54] LABS: CALCIUM 8.2 mg/dL (8.4-11.0)
--- NOTE | 2023-02-09 08:00 | NUR ---
Morning Nurse Notes: Patient stable in bed. Bed in lowest position, call light in reach.
[2023-02-09 09:02] VITALS: BP_SYST 125
[2023-02-09 09:24] VITALS: BP_SYST 125
--- NOTE | 2023-02-09 10:15 | NUR ---
CHF PROTOCOL PATIENT HAS APPOINTMENT TO SEE HIS PCP TODAY 3:15PM DR THORNTON. PATIENT TO SEE HIS STRUCTURED CABLING TECHNICIAN ON FEBRUARY 23, [address] MC.
--- NOTE | 2023-02-09 10:26 | NUR ---
D/C Patient Patient given medication reconciliation form and D/C instructions. Exit Care provided. Patient verbalized understanding. MD discussed with patient the results and treatment provided. Ambulatory with steady gait for discharge to home. Patient in stable condition, ID band removed. IV catheter removed, intact and dressing applied, no active bleeding. Rx of given. Patient educated on pain management. All belongings sent with patient.Wheel out via wheelchair accompanied by staff.
--- NOTE | 2023-02-09 12:37 | NUR ---
CM: Updated clinicals to [facility]/ [facility] , the pt was dc to home this am. No home o2 and nebulizer needed. Pt was on RA , sat 98%. Pt received last dose of IV abx today, no need for HH f/u. I spoke with pt , he did not want hh visiting , said had cardiology appoint next week. Stated not need the nebulizer either. Zeinab made aware. Dr Banuelos updated.
--- NOTE | 2023-02-09 13:07 | NUR ---
PT FAXED REFERRALS TO [facility] PHONE#[phone]
[2023-02-21] MEDS ORDERED: METO2.5T6 PO (11:09)
== END 2023-02-09 10:15 | disposition home or self-care (01) | DRG 291 ==
LOC: SED 22:42 → STU 02-07 00:43
PROVIDERS: ADMIT General Practice; ATTEND General Practice
PROC: 5A0935A Assistance with Respiratory Ventilation, Less than 24 Consecutive Hours, High Flow/Velocity Cannula (ICD-10-PCS; principal; 2023-02-06)
DX: I11.0 Hypertensive heart disease with heart failure (principal); I50.43 Acute on chronic combined systolic (congestive) and diastolic (congestive) heart failure; J96.01 Acute respiratory failure with hypoxia; L03.115 Cellulitis of right lower limb; Z68.41 Body mass index [BMI] 40.0-44.9, adult; I42.9 Cardiomyopathy, unspecified; I87.8 Other specified disorders of veins; I87.2 Venous insufficiency (chronic) (peripheral); E66.01 Morbid (severe) obesity due to excess calories; E78.5 Hyperlipidemia, unspecified; I25.10 Atherosclerotic heart disease of native coronary artery without angina pectoris; R26.81 Unsteadiness on feet; Z20.822 Contact with and (suspected) exposure to COVID-19; E11.40 Type 2 diabetes mellitus with diabetic neuropathy, unspecified; E11.65 Type 2 diabetes mellitus with hyperglycemia; G89.29 Other chronic pain; Z79.4 Long term (current) use of insulin; M94.0 Chondrocostal junction syndrome [Tietze]; Z98.61 Coronary angioplasty status; Z79.82 Long term (current) use of aspirin; Z91.013 Allergy to seafood; Z88.1 Allergy status to other antibiotic agents
CPT/HCPCS: 36415; 36600; 71045; 80048; 80053; 80307; 82803-TC; 83037; 83735; 83880; 84484; 85025; 85610-TC; 85730-TC; 87081; 93005; 93970; 94760; 96374; 97163-GP; 99285; G0378; J0696; J1815; J1940; J2270; J2405; J2765; J7060

== ENCOUNTER 2023-03-29 19:07 | Emergency (ER) | payer OTHER, MEDICAID ==
[~2023-03-29] VITALS: Ht 172.7 cm; Wt 114.3 kg
[~2023-03-29 19:07] MED LIST changes: +ALBU2.5V7 INH; +CEPH250C PO; +METO2.5T6 PO; -PIOG30TA70 PO; +SITA100T11 PO
[2023-03-29 19:25] VITALS: BP_SYST 164
[2023-03-29] MEDS ORDERED: MORPHINE 4 MG INJ. 4 MG/ML VIAL IVP ONE (20:30)
[2023-03-29] MEDS ORDERED: DIPHENHYDRAMINE INJ 50 MG/ML VIAL IVP ONE (20:30)
[2023-03-29] MEDS ORDERED: METOCLOPRAMIDE HCL 10 MG/2 ML VIAL IVP ONE (20:30)
[2023-03-29] MEDS ORDERED: TRAM50TA2 PO (20:43)
[2023-03-29] MEDS ORDERED: PHE25 PO (20:43)
[2023-03-29 22:37] VITALS: BP_SYST 168
[2023-03-30] MEDS ORDERED: METO-290 PO (20:54)
== END 2023-03-29 22:37 | disposition home or self-care (01) ==
LOC: SED 19:07
DX: K31.84 Gastroparesis (principal); R10.13 Epigastric pain; R11.2 Nausea with vomiting, unspecified; E11.9 Type 2 diabetes mellitus without complications; I10 Essential (primary) hypertension; Z91.011 Allergy to milk products; Z91.013 Allergy to seafood; Z79.4 Long term (current) use of insulin; Z79.899 Other long term (current) drug therapy
CPT/HCPCS: 99284; 96374; 96375; J1200; J2765; J2270

== ENCOUNTER 2023-03-30 18:49 | Emergency (ER) | payer OTHER, MEDICAID ==
[~2023-03-30] VITALS: Ht 167.6 cm; Wt 113.4 kg
[~2023-03-30 18:49] MED LIST changes: +PHE25 PO
[2023-03-30 18:59] VITALS: BP_SYST 152
[2023-03-30] MEDS ORDERED: MORPHINE 4 MG INJ. 4 MG/ML VIAL IVP ONE (19:00)
[2023-03-30] MEDS ORDERED: NACL 0.9% 1,000 ML IV ONE (19:00)
[2023-03-30 19:56] LABS: BASOPHILS # (AUTO) 0.1 K/uL (0.0-0.2); BASOPHILS % (AUTO) 0.7 % (0.0-2.0); EOSINOPHILS % (AUTO) 0.2 % (0.0-4.0); HEMATOCRIT 35.6 % (36-54); HEMOGLOBIN 11.9 g/dL (14.0-18.0); LYMPHOCYTES # (AUTO) 0.7 K/uL (1.0-5.5); LYMPHOCYTES % (AUTO) 8.6 % (20.5-51.5); MEAN CORPUSCULAR HEMOGLOBIN 28 pg (27-31); MEAN CORPUSCULAR HGB CONC 33 % (32-36); MEAN CORPUSCULAR VOLUME 84 fL (79.0-98.0); MONOCYTES # (AUTO) 0.7 K/uL (0.0-1.0); MONOCYTES % (AUTO) 8.8 % (1.7-9.3); NEUTROPHILS # (AUTO) 6.2 K/uL (1.8-7.7); NEUTROPHILS % (AUTO) 81.7 % (40.0-70.0); PLATELET COUNT (AUTO) 187 K/uL (130-430); RED BLOOD CELL COUNT(AUTO) 4.24 MIL/uL (4.2-6.2); RED CELL DISTRIBUTION WIDTH 16.2 % (9.0-15.0); WHITE BLOOD COUNT (AUTO) 7.6 K/uL (4.8-10.8)
[2023-03-30 20:13] LABS: ALBUMIN 2.8 g/dL (3.4-4.8); CALCIUM 9.2 mg/dL (8.4-11.0); CREATININE 1.28 mg/dL (0.55-1.30); TOTAL BILIRUBIN 0.5 mg/dL (0.0-1.0)
[2023-03-30] MEDS ORDERED: DIPHENHYDRAMINE INJ 50 MG/ML VIAL IVP ONE (20:15)
[2023-03-30] MEDS ORDERED: METOCLOPRAMIDE HCL 10 MG/2 ML VIAL IVP ONE (20:15)
[2023-03-30] MEDS ORDERED: METO-290 PO (20:54)
[2023-03-30 21:25] VITALS: BP_SYST 138
[2023-03-30] MEDS ORDERED: ONDANSETRON HCL 4 MG/2 ML VIAL IVP ONE (21:30)
== END 2023-03-30 21:25 | disposition home or self-care (01) ==
LOC: SED 18:49
DX: K31.84 Gastroparesis (principal); R11.2 Nausea with vomiting, unspecified; I10 Essential (primary) hypertension; E11.9 Type 2 diabetes mellitus without complications; Z91.013 Allergy to seafood; Z79.899 Other long term (current) drug therapy
CPT/HCPCS: 99284; 96374; 96375; 96361; 80053; 83690; 85025; 36415; J1200; J2765; J2405; J2270; J7030

== ENCOUNTER 2023-12-07 06:07 | Inpatient (IN) | payer MEDICAID, OTHER ==
[~2023-12-07] VITALS: Ht 172.7 cm; Wt 159.7 kg
[~2023-12-07 06:07] MED LIST changes: -ALBU2.5V7 INH; -CEPH-548 PO; -CEPH250C PO; +CIPR500T5 PO; +DOXY100C5 PO; -EMPA25TA PO; -HYDR-3917 PO; -IBUP-1970 PO; +INSU100V53 SUBCUT; -LIDOINT TP; +LOM2.5 PO; -LOP600 PO; -LOSA25TA3 PO; -PHE25 PO; -SEMA0.25 SQ; +VERI5TAB PO; -VITD2000 PO
[2023-12-07 06:11] VITALS: BP_SYST 115; PULSE 88; RESP 22; TEMP 98; O2SAT 96
[2023-12-07 07:01] LABS: BASOPHILS % (AUTO) 0.4 % (0.0-2.0); EOSINOPHILS # (AUTO) 0.2 K/uL (0.0-0.4); EOSINOPHILS % (AUTO) 1.6 % (0.0-4.0); LYMPHOCYTES # (AUTO) 0.8 K/uL (1.0-5.5); LYMPHOCYTES % (AUTO) 5.9 % (20.5-51.5); MEAN CORPUSCULAR HEMOGLOBIN 28 pg (27-31); MEAN CORPUSCULAR HGB CONC 32 % (32-36); MEAN CORPUSCULAR VOLUME 88 fL (79.0-98.0); MONOCYTES # (AUTO) 1.1 K/uL (0.0-1.0); MONOCYTES % (AUTO) 8.6 % (1.7-9.3); NEUTROPHILS # (AUTO) 10.7 K/uL (1.8-7.7); NEUTROPHILS % (AUTO) 83.5 % (40.0-70.0); PLATELET COUNT (AUTO) 299 K/uL (130-430); RED BLOOD CELL COUNT(AUTO) 2.25 MIL/uL (4.2-6.2); RED CELL DISTRIBUTION WIDTH 13.7 % (9.0-15.0); WHITE BLOOD COUNT (AUTO) 12.8 K/uL (4.8-10.8)
[2023-12-07 07:07] LABS: HEMATOCRIT 19.7 % (36-54); HEMOGLOBIN 6.3 g/dL (14.0-18.0)
[2023-12-07 07:11] LABS: ALANINE AMINOTRANSFERASE 19 U/L (12-78); ALBUMIN 1.4 g/dL (3.4-4.8); ASPARTATE AMINOTRANSFERASE 21 U/L (10-37); BILIRUBIN,DIRECT 0.1 mg/dL (0.0-0.3); CREATINE KINASE, TOTAL 288 U/L (39-308); TOTAL BILIRUBIN 0.3 mg/dL (0.0-1.0); TOTAL PROTEIN, SERUM 6.7 g/dL (6.4-8.3)
[2023-12-07 07:13] LABS: INR 1.1 (0.80-1.20)
[2023-12-07 07:37] LABS: CALCIUM 8.5 mg/dL (8.4-11.0); CREATININE 4.33 mg/dL (0.55-1.30)
[2023-12-07] MEDS: PIPERACILLIN/TAZO 3.375 GM in D5W 50 ML IV ONE (07:45)
[2023-12-07] MEDS ORDERED: PIPERACILLIN/TAZOBACTAM 3.375 GM/VIAL (ZOSYN) IV ONE (07:46)
[2023-12-07] MEDS ORDERED: ONDANSETRON HCL 4 MG/2 ML VIAL IVP PRN (09:15)
[2023-12-07] MEDS ORDERED: ACETAMINOPHEN 325 MG TABLET PO PRN ×2 (09:15→10:45)
[2023-12-07 09:27] VITALS: BP_SYST 140; PULSE 96; O2SAT 96
[2023-12-07] MEDS ORDERED: DEXTROSE 50% JECT 50 ML DISP.SYRIN IVP PRN (09:30)
[2023-12-07] MEDS ORDERED: GLUCOSE (DEXTROSE) ORAL GEL -Adults PO PRN (09:30)
[2023-12-07 09:40] LABS: BILIRUBIN,URINE NEGATIVE (NEGATIVE); BLOOD, URINE 1+ (NEGATIVE); CLARITY/URINE CLOUDY (CLEAR); COLOR,URINE YELLOW (YELLOW); GLUCOSE,URINE 3+ (NEGATIVE); KETONES,URINE NEGATIVE (NEGATIVE); LEUKOCYTE ESTERASE ,URINE NEGATIVE (NEGATIVE); NITRITE, URINE NEGATIVE (NEGATIVE); PROTEIN URINE 3+ (NEGATIVE); UROBILINOGEN,URINE 0.2 (0.2-1.0)
[2023-12-07 10:51] LABS: BACTERIA,URINE None Seen /HPF (None Seen); WBC,URINE NONE SEEN /HPF (0-3)
[2023-12-07 10:52] LABS: HYALINE CASTS, URINE 0-1 /LPF (None Seen); MUCUS,URINE 1+ /LPF (None Seen); URINE AMORPHOUS URATE 2+ /HPF (None Seen)
[2023-12-07] MEDS: ALBUTEROL SULFATE 0.083% 2.5 MG/3 ML VIAL.NEB INH SCH (11:00)
[2023-12-07] MEDS: CEFEPIME 2 GM in D5W 100 ML IV ONE (12:20)
[2023-12-07] MEDS: DIPHENHYDRAMINE INJ 50 MG/ML VIAL IVP ONE (12:21)
[2023-12-07] MEDS: VANCOMYCIN HCL 1,500 MG in NS 250 ML IV ONE (13:30)
[2023-12-07] MEDS: MORPHINE 4 MG INJ. 4 MG/ML VIAL IVP PRN (13:41)
[2023-12-07] MEDS ORDERED: DAPA10TA PO (17:20)
[2023-12-07] MEDS ORDERED: LOP600 PO (17:20)
[2023-12-07] MEDS ORDERED: ACET1TAB93 PO (17:21)
[2023-12-07 20:38] VITALS: O2SAT 96
[2023-12-07] MEDS: INSULIN GLARGINE 100 UNITS/ML, 10 ML VIAL SUBCUT SCH (21:00)
[2023-12-07] MEDS: BUMEX 1 MG/4 ML VIAL IVP SCH (23:01)
[2023-12-08] VITALS (9 sets, daily range): BP systolic 135–151; PULSE 84–91; RESP 18–20; TEMP 98.2–99; O2SAT 96–99
[2023-12-08] MEDS ORDERED: DEXTROSE 50% JECT 50 ML DISP.SYRIN ONE (05:21)
[2023-12-08 08:03] LABS: BASOPHILS % (AUTO) 0.4 % (0.0-2.0); EOSINOPHILS # (AUTO) 0.2 K/uL (0.0-0.4); EOSINOPHILS % (AUTO) 1.7 % (0.0-4.0); HEMOGLOBIN 7.8 g/dL (14.0-18.0); LYMPHOCYTES # (AUTO) 0.6 K/uL (1.0-5.5); LYMPHOCYTES % (AUTO) 4.7 % (20.5-51.5); MEAN CORPUSCULAR HEMOGLOBIN 28 pg (27-31); MEAN CORPUSCULAR HGB CONC 33 % (32-36); MEAN CORPUSCULAR VOLUME 87 fL (79.0-98.0); MONOCYTES # (AUTO) 1.1 K/uL (0.0-1.0); MONOCYTES % (AUTO) 9.2 % (1.7-9.3); NEUTROPHILS # (AUTO) 10.3 K/uL (1.8-7.7); PLATELET COUNT (AUTO) 274 K/uL (130-430); RED BLOOD CELL COUNT(AUTO) 2.77 MIL/uL (4.2-6.2); RED CELL DISTRIBUTION WIDTH 14.6 % (9.0-15.0); WHITE BLOOD COUNT (AUTO) 12.2 K/uL (4.8-10.8)
[2023-12-08 08:19] LABS: ALBUMIN 1.3 g/dL (3.4-4.8); CALCIUM 8.3 mg/dL (8.4-11.0); CREATININE 4.47 mg/dL (0.55-1.30); PHOSPHORUS 5.9 mg/dL (2.7-4.5); POTASSIUM 4.9 mmol/L (3.5-5.1); TOTAL BILIRUBIN 0.3 mg/dL (0.0-1.0); TOTAL PROTEIN, SERUM 6.3 g/dL (6.4-8.3); VANCOMYCIN,RANDOM 14.3 ug/mL (20.0-30.0)
[2023-12-08] MEDS: CEFEPIME 2 GM in D5W 100 ML IV SCH (09:16)
[2023-12-08 09:18] LABS: CALCIUM 8.2 mg/dL (8.4-11.0); CREATININE 4.48 mg/dL (0.55-1.30); POTASSIUM 4.9 mmol/L (3.5-5.1)
[2023-12-08] MEDS: VANCOMYCIN HCL 1,000 MG in NS 250 ML IV SCH (16:09)
[2023-12-08] MEDS: BALSAM PERU/CASTOR OIL 56.7 GM OINT...G. TP SCH (20:00)
[2023-12-09] VITALS (9 sets, daily range): BP systolic 122–153; PULSE 16–89; RESP 16–20; TEMP 97.8–99.5; O2SAT 95–99
[2023-12-09 06:25] LABS: BASOPHILS # (AUTO) 0.1 K/uL (0.0-0.2); BASOPHILS % (AUTO) 0.4 % (0.0-2.0); EOSINOPHILS # (AUTO) 0.2 K/uL (0.0-0.4); EOSINOPHILS % (AUTO) 1.9 % (0.0-4.0); HEMATOCRIT 22.5 % (36-54); HEMOGLOBIN 7.3 g/dL (14.0-18.0); LYMPHOCYTES # (AUTO) 0.7 K/uL (1.0-5.5); LYMPHOCYTES % (AUTO) 4.9 % (20.5-51.5); MEAN CORPUSCULAR HEMOGLOBIN 28 pg (27-31); MEAN CORPUSCULAR HGB CONC 33 % (32-36); MEAN CORPUSCULAR VOLUME 86 fL (79.0-98.0); MONOCYTES # (AUTO) 1.2 K/uL (0.0-1.0); MONOCYTES % (AUTO) 8.9 % (1.7-9.3); NEUTROPHILS # (AUTO) 11.2 K/uL (1.8-7.7); NEUTROPHILS % (AUTO) 83.9 % (40.0-70.0); PLATELET COUNT (AUTO) 254 K/uL (130-430); RED CELL DISTRIBUTION WIDTH 14.8 % (9.0-15.0); WHITE BLOOD COUNT (AUTO) 13.4 K/uL (4.8-10.8)
[2023-12-09 07:13] LABS: ALBUMIN 1.3 g/dL (3.4-4.8); CALCIUM 8.3 mg/dL (8.4-11.0); CREATININE 4.63 mg/dL (0.55-1.30); POTASSIUM 4.8 mmol/L (3.5-5.1); TOTAL BILIRUBIN 0.3 mg/dL (0.0-1.0); TOTAL PROTEIN, SERUM 6.4 g/dL (6.4-8.3); VANCOMYCIN,RANDOM 21.8 ug/mL (20.0-30.0)
[2023-12-09] MEDS: HYDROCORTISONE 1%, 28.35 GM TOPICAL CREAM TP PRN (08:52)
[2023-12-09] MEDS: ALBUMIN HUMAN 25% 100 ML IV SCH (22:11)
[2023-12-10] VITALS (10 sets, daily range): BP systolic 126–146; PULSE 86–91; RESP 17–19; TEMP 98.4–99.2; O2SAT 97–100
[2023-12-10 06:36] LABS: BASOPHILS # (AUTO) 0.1 K/uL (0.0-0.2); BASOPHILS % (AUTO) 0.7 % (0.0-2.0); EOSINOPHILS # (AUTO) 0.3 K/uL (0.0-0.4); EOSINOPHILS % (AUTO) 2.1 % (0.0-4.0); LYMPHOCYTES # (AUTO) 0.5 K/uL (1.0-5.5); LYMPHOCYTES % (AUTO) 4.2 % (20.5-51.5); MEAN CORPUSCULAR HEMOGLOBIN 28 pg (27-31); MEAN CORPUSCULAR HGB CONC 33 % (32-36); MEAN CORPUSCULAR VOLUME 86 fL (79.0-98.0); MONOCYTES % (AUTO) 7.5 % (1.7-9.3); NEUTROPHILS % (AUTO) 85.5 % (40.0-70.0); PLATELET COUNT (AUTO) 233 K/uL (130-430); RED BLOOD CELL COUNT(AUTO) 2.46 MIL/uL (4.2-6.2); RED CELL DISTRIBUTION WIDTH 14.5 % (9.0-15.0); WHITE BLOOD COUNT (AUTO) 12.9 K/uL (4.8-10.8)
[2023-12-10 06:52] LABS: HEMATOCRIT 21.2 % (36-54); HEMOGLOBIN 6.9 g/dL (14.0-18.0)
[2023-12-10 06:57] LABS: ALBUMIN 1.6 g/dL (3.4-4.8); CALCIUM 8.4 mg/dL (8.4-11.0); CREATININE 4.66 mg/dL (0.55-1.30); POTASSIUM 4.9 mmol/L (3.5-5.1); TOTAL BILIRUBIN 0.5 mg/dL (0.0-1.0); TOTAL PROTEIN, SERUM 6.3 g/dL (6.4-8.3); VANCOMYCIN,RANDOM 22.4 ug/mL (20.0-30.0)
[2023-12-10] MEDS: ATORVASTATIN 20 MG TABLET PO SCH (09:22)
[2023-12-10] MEDS: MORPHINE 2 MG/ML INJ. SYRINGE IVP PRN (12:09)
[2023-12-10 13:07] LABS: TOTAL IRON BIND. CAPACITY 115 ug/dL (250-450)
[2023-12-10 23:05] LABS: HEMATOCRIT 23.1 % (36-54); HEMOGLOBIN 7.5 g/dL (14.0-18.0)
[2023-12-11] VITALS (11 sets, daily range): BP systolic 133–150; PULSE 85–93; RESP 17–19; TEMP 97.8–98.9; O2SAT 92–100
[2023-12-11 05:25] LABS: BASOPHILS # (AUTO) 0.1 K/uL (0.0-0.2); BASOPHILS % (AUTO) 0.6 % (0.0-2.0); EOSINOPHILS # (AUTO) 0.3 K/uL (0.0-0.4); EOSINOPHILS % (AUTO) 1.9 % (0.0-4.0); HEMATOCRIT 23.6 % (36-54); HEMOGLOBIN 7.6 g/dL (14.0-18.0); LYMPHOCYTES # (AUTO) 0.6 K/uL (1.0-5.5); LYMPHOCYTES % (AUTO) 4.3 % (20.5-51.5); MEAN CORPUSCULAR HEMOGLOBIN 28 pg (27-31); MEAN CORPUSCULAR HGB CONC 32 % (32-36); MEAN CORPUSCULAR VOLUME 87 fL (79.0-98.0); MONOCYTES # (AUTO) 0.9 K/uL (0.0-1.0); MONOCYTES % (AUTO) 6.3 % (1.7-9.3); NEUTROPHILS % (AUTO) 86.9 % (40.0-70.0); PLATELET COUNT (AUTO) 230 K/uL (130-430); RED CELL DISTRIBUTION WIDTH 14.4 % (9.0-15.0); WHITE BLOOD COUNT (AUTO) 13.8 K/uL (4.8-10.8)
[2023-12-11 05:42] LABS: ALBUMIN 1.7 g/dL (3.4-4.8); CREATININE 4.19 mg/dL (0.55-1.30); POTASSIUM 4.7 mmol/L (3.5-5.1); TOTAL BILIRUBIN 0.5 mg/dL (0.0-1.0); TOTAL PROTEIN, SERUM 6.8 g/dL (6.4-8.3)
[2023-12-11] MEDS: EPOETIN ALFA-EPBX 4,000 UNITS/ML VIAL SUBCUT SCH (09:00)
[2023-12-11] MEDS ORDERED: IRON DEXTRAN COMPLEX 100 MG in NS 100 ML IV SCH (09:00)
[2023-12-11] MEDS ORDERED: BUPIVACAINE /PF 0.25% 30 ML VIAL INJ ONE (16:48)
[2023-12-11] MEDS ORDERED: NS IRRIG SOLN 1000 ML IR ONE (16:48)
[2023-12-11] MEDS ORDERED: NS 1000 ML IV.SOLN IV ONE (16:48)
[2023-12-11] MEDS ORDERED: KETAMINE HCL IN 0.9 % NACL 50 MG/5 ML SYRINGE ONE (16:48)
[2023-12-11] MEDS ORDERED: PROPOFOL 200MG/ 20ML VIAL (DIPRIVAN) IV ONE (16:48)
[2023-12-11] MEDS: KETAMINE HCL IN 0.9 % NACL 50 MG/5 ML SYRINGE ONE (17:00)
[2023-12-11] MEDS ORDERED: hydrALAZINE HCL 20 MG/ML VIAL IV PRN (17:15)
[2023-12-11] MEDS ORDERED: NALOXONE HCL 0.4 MG/ML AMP (NARCAN) IVP PRN (17:15)
[2023-12-11] MEDS ORDERED: KETOROLAC TROMETHAMINE 30 MG VIAL IM PRN (17:15)
[2023-12-11] MEDS ORDERED: HYDROmorphone 1 MG/ML INJ. CARTRIDGE IVP PRN ×2 (17:15)
[2023-12-11] MEDS ORDERED: ONDANSETRON HCL 4 MG/2 ML VIAL IVP PRN (17:15)
[2023-12-11] MEDS: IRON DEXTRAN COMPLEX 25 MG in NS 50 ML TEST DOSE IV ONE (20:32)
[2023-12-11] MEDS: HYDROmorphone 1 MG/ML INJ. CARTRIDGE IVP PRN (21:37)
[2023-12-11] MEDS: IRON DEXTRAN COMPLEX 75 MG in NS 100 ML IV ONE (21:39)
[2023-12-12] VITALS (11 sets, daily range): BP systolic 140–156; PULSE 79–99; RESP 18–20; TEMP 97.4–98.8; O2SAT 95–99
[2023-12-12 05:10] LABS: BASOPHILS # (AUTO) 0.1 K/uL (0.0-0.2); BASOPHILS % (AUTO) 0.8 % (0.0-2.0); EOSINOPHILS # (AUTO) 0.3 K/uL (0.0-0.4); EOSINOPHILS % (AUTO) 2.4 % (0.0-4.0); HEMATOCRIT 24.8 % (36-54); HEMOGLOBIN 7.9 g/dL (14.0-18.0); LYMPHOCYTES # (AUTO) 0.6 K/uL (1.0-5.5); MEAN CORPUSCULAR HEMOGLOBIN 28 pg (27-31); MEAN CORPUSCULAR HGB CONC 32 % (32-36); MEAN CORPUSCULAR VOLUME 88 fL (79.0-98.0); MONOCYTES # (AUTO) 0.8 K/uL (0.0-1.0); MONOCYTES % (AUTO) 6.7 % (1.7-9.3); NEUTROPHILS # (AUTO) 10.4 K/uL (1.8-7.7); NEUTROPHILS % (AUTO) 85.1 % (40.0-70.0); PLATELET COUNT (AUTO) 264 K/uL (130-430); RED BLOOD CELL COUNT(AUTO) 2.81 MIL/uL (4.2-6.2); RED CELL DISTRIBUTION WIDTH 14.4 % (9.0-15.0); WHITE BLOOD COUNT (AUTO) 12.3 K/uL (4.8-10.8)
[2023-12-12 05:25] LABS: ALBUMIN 1.6 g/dL (3.4-4.8); CALCIUM 8.9 mg/dL (8.4-11.0); CREATININE 3.83 mg/dL (0.55-1.30); PHOSPHORUS 5.9 mg/dL (2.7-4.5); POTASSIUM 4.7 mmol/L (3.5-5.1); TOTAL BILIRUBIN 0.4 mg/dL (0.0-1.0); TOTAL PROTEIN, SERUM 6.7 g/dL (6.4-8.3); VANCOMYCIN,RANDOM 22.4 ug/mL (20.0-30.0)
[2023-12-12 06:11] LABS: ERYTHROCYTE SEDIMENTATION RATE 52 MM/HR (0-15)
[2023-12-12] MEDS: IRON DEXTRAN COMPLEX 100 MG in NS 100 ML IV SCH (09:43)
[2023-12-12] MEDS: NAFCILLIN SODIUM 1 GM in NS 50 ML IV SCH (18:46)
[2023-12-12] MEDS: CARVEDILOL 12.5 MG TABLET (COREG) PO SCH (22:29)
[2023-12-12] MEDS: INSULIN REGULAR, HUMAN 100 UNITS/ML, 3 ML VIAL (humuLIN R) SUBCUT PRN (22:35)
[2023-12-13] VITALS (12 sets, daily range): BP systolic 130–165; PULSE 58–88; RESP 18–20; TEMP 96.5–98.6; O2SAT 90–98
[2023-12-13 05:03] LABS: BASOPHILS # (AUTO) 0.1 K/uL (0.0-0.2); BASOPHILS % (AUTO) 0.8 % (0.0-2.0); EOSINOPHILS # (AUTO) 0.3 K/uL (0.0-0.4); EOSINOPHILS % (AUTO) 2.7 % (0.0-4.0); HEMATOCRIT 25.2 % (36-54); HEMOGLOBIN 8.3 g/dL (14.0-18.0); LYMPHOCYTES # (AUTO) 0.6 K/uL (1.0-5.5); LYMPHOCYTES % (AUTO) 5.9 % (20.5-51.5); MEAN CORPUSCULAR HEMOGLOBIN 29 pg (27-31); MEAN CORPUSCULAR HGB CONC 33 % (32-36); MEAN CORPUSCULAR VOLUME 88 fL (79.0-98.0); MONOCYTES # (AUTO) 0.9 K/uL (0.0-1.0); NEUTROPHILS # (AUTO) 8.8 K/uL (1.8-7.7); NEUTROPHILS % (AUTO) 82.6 % (40.0-70.0); PLATELET COUNT (AUTO) 270 K/uL (130-430); RED BLOOD CELL COUNT(AUTO) 2.87 MIL/uL (4.2-6.2); RED CELL DISTRIBUTION WIDTH 14.5 % (9.0-15.0); WHITE BLOOD COUNT (AUTO) 10.7 K/uL (4.8-10.8)
[2023-12-13 05:15] LABS: ALBUMIN 1.5 g/dL (3.4-4.8); CALCIUM 8.7 mg/dL (8.4-11.0); CREATININE 3.69 mg/dL (0.55-1.30); POTASSIUM 4.5 mmol/L (3.5-5.1); TOTAL BILIRUBIN 0.4 mg/dL (0.0-1.0); TOTAL PROTEIN, SERUM 6.4 g/dL (6.4-8.3)
[2023-12-13 06:12] LABS: ERYTHROCYTE SEDIMENTATION RATE 64 MM/HR (0-15)
[2023-12-13 08:42] LABS: BILIRUBIN,URINE NEGATIVE (NEGATIVE); BLOOD, URINE 3+ (NEGATIVE); CLARITY/URINE CLOUDY (CLEAR); COLOR,URINE YELLOW (YELLOW); GLUCOSE,URINE 2+ (NEGATIVE); KETONES,URINE TRACE (NEGATIVE); LEUKOCYTE ESTERASE ,URINE TRACE (NEGATIVE); NITRITE, URINE NEGATIVE (NEGATIVE); PROTEIN URINE 3+ (NEGATIVE); UROBILINOGEN,URINE 0.2 (0.2-1.0)
[2023-12-13 09:39] LABS: BACTERIA,URINE FEW /HPF (None Seen); RBC,URINE 50-80 /HPF (0-3)
[2023-12-13 09:40] LABS: URINE AMORPHOUS URATE 2+ /HPF (None Seen)
[2023-12-13] MEDS: HYDROcodone/ACETAMIN 5-325 MG TAB (NORCO/ VICODIN) PO PRN (10:02)
[2023-12-13] MEDS: BUMETANIDE 1 MG TABLET PO SCH (18:10)
[2023-12-13] MEDS ORDERED: VANCOMYCIN HCL 500 MG in NS 100 ML IV SCH (21:00)
[2023-12-14] VITALS (11 sets, daily range): BP systolic 148–163; PULSE 76–86; RESP 19–22; TEMP 97.9–98.8; O2SAT 94–100
[2023-12-14] MEDS: hydrALAZINE HCL 25 MG TABLET PO SCH (13:47)
[2023-12-14] MEDS: CARVEDILOL 25 MG TABLET (COREG) PO SCH (22:03)
[2023-12-15] VITALS (7 sets, daily range): BP systolic 152–175; PULSE 75; RESP 18–20; TEMP 97.3–98.1; O2SAT 95–99
[2023-12-15 08:29] LABS: BILIRUBIN,URINE NEGATIVE (NEGATIVE); BLOOD, URINE 3+ (NEGATIVE); CLARITY/URINE SL CLOUDY (CLEAR); COLOR,URINE YELLOW (YELLOW); GLUCOSE,URINE 2+ (NEGATIVE); KETONES,URINE NEGATIVE (NEGATIVE); LEUKOCYTE ESTERASE ,URINE NEGATIVE (NEGATIVE); NITRITE, URINE NEGATIVE (NEGATIVE); PROTEIN URINE 3+ (NEGATIVE); UROBILINOGEN,URINE 0.2 (0.2-1.0)
[2023-12-15 08:48] LABS: BACTERIA,URINE FEW /HPF (None Seen); RBC,URINE 20-50 /HPF (0-3); YEAST,URINE Rare /HPF (None Seen)
[2023-12-15] MEDS: hydrALAZINE HCL 25 MG TABLET PO SCH (14:44)
== END 2023-12-15 15:50 | disposition home health service (06) | DRG 987 ==
LOC: SED 06:07 → STU 09:08 → SMU 12-11 18:04
PROVIDERS: ADMIT Family Medicine; ATTEND Family Medicine
PROC: 30233N1 Transfusion of Nonautologous Red Blood Cells into Peripheral Vein, Percutaneous Approach (ICD-10-PCS; 2023-12-07)
PROC: 0QBL0ZZ Excision of Right Tarsal, Open Approach (ICD-10-PCS; 2023-12-11)
PROC: 0QBM0ZZ Excision of Left Tarsal, Open Approach (ICD-10-PCS; principal; 2023-12-11 16:48)
DX: L89.624 Pressure ulcer of left heel, stage 4 (principal); I50.23 Acute on chronic systolic (congestive) heart failure; L03.116 Cellulitis of left lower limb; E11.52 Type 2 diabetes mellitus with diabetic peripheral angiopathy with gangrene; L02.612 Cutaneous abscess of left foot; I42.8 Other cardiomyopathies; Z68.43 Body mass index [BMI] 50.0-59.9, adult; I13.2 Hypertensive heart and chronic kidney disease with heart failure and with stage 5 chronic kidney disease, or end stage renal disease; I96 Gangrene, not elsewhere classified; L02.415 Cutaneous abscess of right lower limb; N17.9 Acute kidney failure, unspecified; N18.5 Chronic kidney disease, stage 5; D64.9 Anemia, unspecified; E88.09 Other disorders of plasma-protein metabolism, not elsewhere classified; E83.39 Other disorders of phosphorus metabolism; E66.01 Morbid (severe) obesity due to excess calories; E11.65 Type 2 diabetes mellitus with hyperglycemia; Z79.899 Other long term (current) drug therapy
CPT/HCPCS: 36415; 70450-TC; 71045; 72170-TC; 76376; 76770; 80048; 80053; 80076; 80202; 81000; 81001; 81015; 82272; 82550; 82948; 83037; 83540; 83550; 83605; 83735; 83880; 84100; 84484; 85018; 85025; 85610; 85651; 85730; 86886; 86900; 86901; 86920; 87040; 87070; 87075; 87086; 87186; 93005; 93923; 94640; 94664; 94760; 97110-GP; 97116-GP; 97530-GP; 99291; G0378; J0692; J1170; J1750; J1815; J2270; J2543; J2704; J3370; J3490; J7030; J7050; J7060; P9021; Q5106